=== PATIENT | female | born 1955 | race Caucasian/White ===

== ENCOUNTER → 2016-05-14 | Outpatient (REF) ==
[~2016-05-14] MED LIST: ATIVAN0.5 MG PO; CORTEF5 MG PO; FERROUS SU325 MG/TAB PO; HCTZ12.5TAB PO; HEARTBURN RELIE20 MG PO; HYDROCODONE/APAP; HYDROCORTISONE5 M1 PO; LEXAPRO 10MG10 MG PO; MIRALAX PA17 GM/Dose PO; NORCO 325 MG-51 TAB PO; OXYCODONE5 MG PO; PEPCID 20MG TAB20 MG PO; PHENERGAN 25 TA25 MG PO; PHENERGAN25 MG RC; PLAQUENIL 200M200 MG PO; PROTONIX 40MG T40 MG PO; RESTORIL 77.5 MG/CAP PO; RESTORIL15 MG PO; SLEEPING PILL; TYLENOL 325MG325 MG PO; ULTRAM 50MG TAB50 MG PO; VALIUM5 MG PO; VITAMIN D 1001000 IU PO; VOLTAREN-XR100 MG PO; XANAX .25M0.25 MG/TA PO; XANAX0.25 MG PO; ZOFRAN 4MG T4 MG/TAB PO; ZOFRAN8 MG PO; [UNRECOGNIZED DRUG - REMARK]
== END ==
LOC: ZLAB.WCH 10:33
DX: Z01.89 Encounter for other specified special examinations (principal)

== ENCOUNTER → 2016-10-16 | Outpatient (CLI) | payer BC | LOC: BHSO 08:33 | DX: Z01.818 Encounter for other preprocedural examination (principal) ==

== ENCOUNTER 2017-10-06 16:37 | Emergency (ER) | payer BC ==
[~2017-10-06] VITALS: Ht 154.9 cm; Wt 56.4 kg
[2017-10-06 16:43] VITALS: TEMP 98.5
[2017-10-06 17:23] LABS: BASO % 0.4 % (0.0-2.0); EOS % 0.2 % (0-4.0); GRAN # 3.6 (1.4-6.5); GRAN % 73.3 % (42.2-75.2); HEMOGLOBIN 13.6 g/dl (12.5-16.0); LYMPH # 0.5 (1.2-3.4); LYMPH % 10.3 % (20.0-51.0); MEAN CELL VOLUME 95 fl (80.0-100.0); MEAN CORPUSCULAR HEMOGLOBIN 32 pg (27.0-31.0); MEAN CORPUSCULAR HGB CONC 33 g/dl (33.0-37.0); MEAN PLATELET VOLUME 9.6 fl (7.4-10.4); MONO # 0.8 (0.1-0.6); MONO % 15.6 % (1.7-9.3); PLATELET COUNT 227 K/mm3 (130-400); RED BLOOD COUNT 4.32 M/mm3 (4.10-5.30); REDCELL DISTRIBUTION WIDTH-CV 13.2 % (11.5-14.5)
[2017-10-06 17:34] LABS: ALBUMIN 4.4 gm/dL (3.5-5.0); BILIRUBIN,TOTAL 0.3 mg/dL (0.0-1.0); C-REACTIVE PROTEIN 8.4 mg/dL (0.0-0.9); CALCIUM 9.6 mg/dL (8.4-10.2); CREATININE, serum 0.65 mg/dL (0.52-1.25); POTASSIUM 3.8 mmol/L (3.4-5.0); TOTAL PROTEIN 7.8 gm/dL (6.4-8.2)
[2017-10-06] MEDS ORDERED: FENTANYL 75MCG TD (17:34)
[2017-10-06] MEDS ORDERED: AMBIEN CR 12.12.5 MG PO (17:34)
[2017-10-06] MEDS ORDERED: ZOFRAN 4MG T4 MG/TAB PO (17:35)
[2017-10-06 18:03] LABS: COLLECTION METHOD CATHETER
[2017-10-06 18:10] LABS: MUCOUS Present /lpf; PH 5 (5-8); SQUAMOUS EPITHELIAL 0-2 /hpf; URINE APPEARANCE Hazy; URINE BACTERIA None Seen /hpf; URINE BILIRUBIN Negative (NEGATIVE); URINE BLOOD Negative (NEGATIVE); URINE COLOR Yellow; URINE GLUCOSE Negative (NEGATIVE); URINE KETONE 1+ (NEGATIVE); URINE LEUKOCYTE ESTERASE Negative (NEGATIVE); URINE NITRATE Negative (NEGATIVE); URINE PROTEIN(semi-quant) 2+ (NEGATIVE); URINE RBC 0-2 /hpf; URINE UROBILINOGEN Negative (NEGATIVE)
[2017-10-06] MEDS ORDERED: CIPRO 500MG TA500 MG PO (19:58)
[2017-10-06] MEDS ORDERED: ZOFRAN ODT4 MG PO (19:58)
[2017-10-06] MEDS ORDERED: FLAGYL500 MG PO (19:58)
[2017-10-06 20:11] VITALS: BP 111/65; PULSE 98
== END 2017-10-06 20:15 | disposition home or self-care (01) ==
LOC: COL.ER 16:37
PROVIDERS: Emergency Medicine
DX: K52.9 Noninfective gastroenteritis and colitis, unspecified (principal); Z98.51 Tubal ligation status; Z98.890 Other specified postprocedural states
CPT/HCPCS: J2405; J7030; Q9967

== ENCOUNTER 2018-06-17 13:00 | Outpatient (RCR) | payer BC ==
[~2018-06-17 13:00] MED LIST changes: +AMBIEN CR 12.12.5 MG PO; +CIPRO 500MG TA500 MG PO; +FENTANYL 75MCG TD; +FLAGYL500 MG PO; +ZOFRAN ODT4 MG PO
== END 2018-07-15 11:37 | disposition home or self-care (01) ==
LOC: WSC 13:00
DX: M54.5 Low back pain (principal)

== ENCOUNTER 2020-02-06 14:48 | Emergency (ER) | payer BC ==
[~2020-02-06] VITALS: Ht 2.5 cm; Wt 52.3 kg
[2020-02-06 14:58] VITALS: BP 117/61; TEMP 98.1
[2020-02-06 15:39] LABS: BASO % 0.6 % (0.0-2.0); EOS # 0.1 (0.0-0.7); EOS % 0.7 % (0-4.0); GRAN # 5.8 (1.4-6.5); GRAN % 84.5 % (42.2-75.2); HEMATOCRIT 37.7 % (37.0-47.0); HEMOGLOBIN 11.8 g/dl (12.5-16.0); LYMPH # 0.4 (1.2-3.4); LYMPH % 5.4 % (20.0-51.0); MEAN CELL VOLUME 101 fl (80.0-100.0); MEAN CORPUSCULAR HEMOGLOBIN 32 pg (27.0-31.0); MEAN CORPUSCULAR HGB CONC 31 g/dl (33.0-37.0); MEAN PLATELET VOLUME 8.7 fl (7.4-10.4); MONO # 0.6 (0.1-0.6); MONO % 8.7 % (1.7-9.3); PLATELET COUNT 436 K/mm3 (130-400); RED BLOOD COUNT 3.75 M/mm3 (4.10-5.30); REDCELL DISTRIBUTION WIDTH-CV 12.4 % (11.5-14.5)
[2020-02-06 15:49] LABS: ALBUMIN 4.3 gm/dL (3.5-5.0); BILIRUBIN,TOTAL 0.4 mg/dL (0.0-1.0); CALCIUM 10.1 mg/dL (8.4-10.2); CREATININE, serum 0.87 (0.52-1.25); POTASSIUM 4.6 mmol/L (3.4-5.0); TOTAL PROTEIN 7.4 gm/dL (6.4-8.2)
[2020-02-06 16:08] LABS: COLLECTION METHOD CLEAN CATCH
[2020-02-06 16:25] LABS: MUCOUS Present /lpf; PH 6 (5-8); SQUAMOUS EPITHELIAL None Seen /hpf; URINE APPEARANCE Clear; URINE BACTERIA Rare /hpf; URINE BILIRUBIN Negative (NEGATIVE); URINE BLOOD Negative (NEGATIVE); URINE COLOR Yellow; URINE GLUCOSE Negative (NEGATIVE); URINE KETONE 1+ (NEGATIVE); URINE LEUKOCYTE ESTERASE Negative (NEGATIVE); URINE NITRATE Negative (NEGATIVE); URINE PROTEIN(semi-quant) Negative (NEGATIVE); URINE RBC 0-2 /hpf; URINE UROBILINOGEN Negative (NEGATIVE)
[2020-02-06] MEDS ORDERED: PROTONIX 40MG T40 MG PO (16:57)
[2020-02-06 17:14] VITALS: PULSE 91
== END 2020-02-06 17:14 | disposition home or self-care (01) ==
LOC: COL.ER 14:48
PROVIDERS: Physician Assistant
DX: K27.9 Peptic ulcer, site unspecified, unspecified as acute or chronic, without hemorrhage or perforation (principal)
CPT/HCPCS: J2405; J7030; Q9967